=== PATIENT | male | born 2000 | race Caucasian/White ===

== ENCOUNTER 2024-12-19 10:05 | Day surgery (SDC) | payer OTHER, SELFPAY ==
[2024-12-19] VITALS (12 sets, daily range): BP systolic 124–152; BP diastolic 77–95; PULSE 81–115; RESP 12–29; TEMP 36.1–37.1; O2SAT 91–99; BMI 31.8
--- OUTSIDE RECORDS SUMMARY | 2024-12-19 10:09 | XMS_ITS | Encounter Summary ---
Author Organization [facility] Address [address] [facility] [place] [address] Care Team Providers Care Carton Machine Operator Name Role Phone Unavailable Primary Care Provider Unavailabl e Encounter Details Date Type Department Care Team (Latest Contact Info) Description 04/03/2004 Outpatient Historical [facility] Ophthalmology 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
--- OUTSIDE RECORDS SUMMARY | 2024-12-19 10:09 | XMS_ITS | Clinical Summary ---
Author Organization [facility] Address [address] [place] [address] Care Team Providers Care Travertine Installer Name Role Phone Unavailable Primary Care Provider Unavailabl e Immunizations Immunization Administration Dates Next Due (M-M-R II/PRIORIX)(12 MO UP) MEASLES, MUMPS AND RUBELLA VIRUS VACCINE, 0.5 ML IM/SUBCUT 09/05/2000 (VARIVAX)(12 MOS UP)VARICELL A VIRUS VACCINE (PF) 0.5 ML, SUB CUT 12/30/2002 Dt Dtp Dtap Vaccine 09/05/2000, 0,1999,1999 HIB, Unspecified Formulation 09/05/2000, 03/03/2000,1999,1999 Hepatitis B Vaccine 03/03/2000,1999,1999 IPV/OPV 09/05/2000,1999,1999 Social History Tobacco Use Types Packs/Day Years Used Date Smoking Tobacco: Never Assessed Sex and Gender Information Value Date Recorded Sex Assigned at Not on file 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
--- OUTSIDE RECORDS SUMMARY | 2024-12-19 10:09 | XMS_ITS | Encounter Summary ---
Author Organization [facility] Address [address] [facility] [place] [address] Care Team Providers Care Water Filterer Name Role Phone Unavailable Primary Care Provider Unavailabl e Encounter Details Date Type Department Care Team (Latest Contact Info) Description 07/03/2004 Outpatient Historical [facility] Ophthalmology 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
--- OUTSIDE RECORDS SUMMARY | 2024-12-19 10:09 | XMS_ITS | Encounter Summary ---
Author Organization [facility] Address [address] [place] [address] Care Team Providers Care Regulatory Affairs Coordinator Name Role Phone Unavailable Primary Care Provider Unavailabl e Encounter Details Date Type Department Care Team (Latest Contact Info) Description 09/10/2005 Outpatient Historical [facility] Op[facility]mology 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
--- NOTE | 2024-12-19 10:20 | CTR_ITS ---
PROCEDURE INFORMATION: Exam: CT Abdomen And Pelvis With Contrast Exam date and time: 12/19/2024 10:30 AM Age: 24 years old Clinical indication: Abdominal pain; Periumbilical; Additional info: Abd pain TECHNIQUE: Imaging protocol: Computed tomography of the abdomen and pelvis with contrast. Radiation optimization: All CT scans at this facility use at least one of these dose optimization techniques: automated exposure control; mA and/or kV adjustment per patient size (includes targeted exams where dose is matched to clinical indication); or iterative reconstruction. Contrast material: OMNIPAQUE 350; Contrast volume: 100 ml; Contrast route: INTRAVENOUS (IV); COMPARISON: No relevant prior studies available. RADIATION DOSE METRICS: Total DLP (mGy-cm): 839.83 FINDINGS: Liver: Normal. No mass. Gallbladder and biliary ducts: Normal. No calcified stones. No ductal dilation. Pancreas: Normal. No ductal dilation. Spleen: Normal. No splenomegaly. Adrenal glands: Normal. No mass. Kidneys and ureters: Normal. No hydronephrosis. Stomach and bowel: Unremarkable. No obstruction. No mucosal thickening. Appendix: Appendiceal diameter measures 9 mm with subtle periappendiceal fat stranding. Findings are consistent with acute appendicitis. No fluid collections are seen. Intraperitoneal space: Unremarkable. No free air. No significant fluid collection. Vasculature: Unremarkable. No abdominal aortic aneurysm. Lymph nodes: Unremarkable. No enlarged lymph nodes. Urinary bladder: Unremarkable as visualized. Reproductive: Unremarkable as visualized. Bones/joints: Unremarkable. No acute fracture. Soft tissues: Unremarkable. CT/CT abdomen pelvis w con* [id number] IMPRESSION: Findings consistent with acute appendicitis.
--- NOTE | 2024-12-19 10:21 | W.ED.ABDPA2 ---
HPI - Abdominal Pain General: Chief Complaint: Abdominal Pain Stated Complaint: lower abd pain, n/v, chills Time Seen by Provider: 12/19/24 10:07 Source: patient Mode of arrival: ambulatory Limitations: no limitations History of Present Illness: 24-year-old male states that he has been having nausea vomiting with abdominal pain since the middle of the night. States he has diffuse pain is sharp in nature rates it a 7 out of 10. He denies any fevers denies any worsening improving factors no history any abdominal surgeries in the past. Associated Symptoms: Reports nausea and vomiting; Denies chills, diarrhea and fever(s) Related Data Home Medications ?Medication ?Instructions ?Recorded ?Confirmed finasteride 5 mg tablet 5 mg PO DAILY 12/19/24 12/19/24 Allergies Allergy/AdvReac Type Severity Reaction Status Date / Time No Known Allergies Allergy Verified 12/19/24 10:53 Review of Systems Const: Denies: fever(s), chills, body aches or change in appetite ENMT: Denies: throat pain or dental pain Card: Denies: chest pain Resp: Denies: dyspnea GI: Reports: abdominal pain, nausea and vomiting; Denies: diarrhea Musc: Denies: neck pain or back pain Skin/Breast: Denies: rash Neuro: Denies: headache(s) Physical Exam Const: COMMON NORMALS: no acute distress, patient oriented x3 and healthy appearing HENMT: COMMON NORMALS: normocephalic and atraumatic HEAD & SCALP: normocephalic and atraumatic Eye: COMMON NORMALS: conjunctivae normal CONJUNCTIVA: Yes conjunctivae normal Neck/C-Spine: COMMON NORMALS: full ROM and supple Chest: COMMONS NORMALS: normal inspection of the chest Resp: COMMON NORMALS: normal respiratory effort Cardio: COMMON NORMALS: regular rate, regular rhythm and No murmurs present (Cardio) RATE: regular rate RHYTHM: regular rhythm GI: COMMON NORMALS: Normal to inspection, nondistended, normoactive bowel sounds present, Soft to palpation and no masses PALPATION: Yes Soft to palpation OTHER: Diffuse tenderness Extremity: COMMON NORMALS: normal to inspection and full ROM Neuro: COMMON NORMALS: patient oriented x3, moves all extremities and no focal motor deficits Psych: COMMON NORMALS: mental status grossly normal, Normal thought process present and cooperative THOUGHT PROCESS: Normal thought process present Skin: COMMON NORMALS: no rashes or lesions noted and no wounds GENERAL SKIN EXAM: no rashes or lesions noted Course Vital Signs: Vital signs: Vital Signs Temperature 98.1 F 12/19/24 10:17 Pulse Rate 81 12/19/24 10:17 Respiratory Rate 17 12/19/24 10:53 Blood Pressure 152/81 12/19/24 10:49 Pulse Oximetry 98 12/19/24 10:53 Oxygen Delivery Me thod Room Air 12/19/24 10:17 MDM - Abdominal Pain Medical Decision Making Patient presents here with abdominal pain along with nausea vomiting. Did review CT scan that shows appendicitis he has an elevated white count as well. No signs of perforation blood pressures here been normal I spoke to surgeon Dr. Brown who is going to come see patient and likely take to the OR from the ER. I have informed patient and his mother of the CT findings and the plan of surgery they understand agree to plan Medical Records I reviewed the patient's medical records. Lab Data I reviewed the patient's lab results. 12/19/24 10:28 12/19/24 10:28 Labs/Radiology: Radiology Impressions Abdomen/Pelvis CT 12/19/24 10:20 IMPRESSION: Findings consistent with acute appendicitis. ADDENDUM: 12/19/24 1112 COMMENT: THIS REPORT CONTAINS FINDINGS THAT MAY BE CRITICAL TO PATIENT CARE. The exam findings were verbally communicated by me to DR. LIDIA CONCEPCION via telephone conference at 11:11 AM CDT on 12/19/2024. The findings were acknowledged and understood. Laboratory Results WBC 15.11 10^3/uL (3.29-11.43) H 12/19/24 10:28 RBC 5.21 10^6/uL (3.85-5.65) 12/19/24 10:28 Hgb 15.10 g/dL (11.27-16.99) 12/19/24 10:28 Hct 43.6 % (37-53) 12/19/24 10:28 MCV 83.7 fl (82-101) 12/19/24 10:28 MCH 29.0 pg (27-33) 12/19/24 10:28 MCHC 34.6 g/dL (30-55) 12/19/24 10:28 RDW 13.5 % (12.1-15.1) 12/19/24 10:28 Plt Count 236 10^3/cmm (157-399) 12/19/24 10:28 MPV 9.5 fL (7.4-10.4) 12/19/24 10:28 Neut % (Auto) 92.5 % 12/19/24 10:28 Lymph % (Auto) 3.2 % 12/19/24 10:28 Sandoval % (Auto) 3.6 % 12/19/24 10:28 Eos % (Auto) 0.0 % 12/19/24 10:28 Baso % (Auto) 0.1 % 12/19/24 10:28 Neut # (Auto) 13.98 10^3/uL (1.8-7.7) H 12/19/24 10:28 Lymph # (Auto) 0.5 10^3/uL (0.8-4.8) L 12/19/24 10:28 Sandoval # (Auto) 0.5 10^3/uL (0.2-0.9) 12/19/24 10:28 Eos # (Auto) 0.0 10^3/uL (0.0-0.8) 12/19/24 10:28 Baso # (Auto) 0.0 10^3/uL (0.0-0.1) 12/19/24 10:28 Nucleated RBC % (auto) 0 % 12/19/24 10:28 Nucleated RBCs # 0.0 /100WBC 12/19/24 10:28 Sodium 136 mmol/L (136-145) 12/19/24 10:28 Potassium 4.4 mmol/L (3.5-5.1) 12/19/24 10:28 Chloride 99 mmol/L (98-107) 12/19/24 10:28 Carbon Dioxide 25 mmol/L (22-29) 12/19/24 10:28 Anion Gap 16.4 (5-19) 12/19/24 10:28 BUN 13 mg/dL (6-20) 12/19/24 10:28 Creatinine 0.8 mg/dL (0.7-1.2) 12/19/24 10:28 GFR Calculation 117.8 mL/min (90-130) 12/19/24 10:28 Glucose 171 mg/dL (65-115) H 12/19/24 10:28 Calculated Osmolality 286 mOsm/kg (285-295) 12/19/24 10:28 Calcium 9.4 mg/dL (8.5-10.5) 12/19/24 10:28 Total Bilirubin 0.6 mg/dL (0.15-1.2) 12/19/24 10:28 AST 18 U/L (0-40) 12/19/24 10:28 ALT 21 U/L (0-41) 12/19/24 10:28 Alkaline Phosphatase 66 U/L (40-130) 12/19/24 10:28 Total Protein 7.7 g/dL (6.6-8.7) 12/19/24 10:28 Albumin 4.7 g/dL (3.5-5.2) 12/19/24 10: Globulin 3.0 g/dL (1.3-4.6) 12/19/24 10:28 Lipase 24 U/L (13-60) 12/19/24 10:28 Urine Color Yellow (Yellow) 12/19/24 10:41 Urine Appearance Cloudy (CLEAR) A 12/19/24 10:41 Urine pH 7.5 (5-7) 12/19/24 10:41 Ur Specific [place] 1.041 (1.005-1.030) H 12/19/24 10:41 Urine Protein 1+ (Negative) A 12/19/24 10:41 Urine Glucose (UA) 2+ (Normal) H 12/19/24 10:41 Urine Ketones 2+ (Negative) H 12/19/24 10:41 Urine Blood Negative (Negative) 12/19/24 10:41 Urine Nitrate Negative (Negative) 12/19/24 10:41 Urine Bilirubin Negative (Negative) 12/19/24 10:41 Urine Urobilinogen 1.0 mg/dL (Negative) 12/19/24 10:41 Ur Leukocyte Esterase Negative (Negative) 12/19/24 10:41 Urine RBC 0-2 /hpf (0-2) 12/19/24 10:41 Urine WBC 0-5 /hpf (0-5) 12/19/24 10:41 Ur Squamous Epith Cells 0-5 /hpf (0-5) 12/19/24 10:41 Amorphous Sediment Not Reportable 12/19/24 10:41 Urine Bacteria None seen /hpf (NONE) 12/19/24 10:41 Hyaline Casts 0-4 /lpf H 12/19/24 10:41 All radiology interpretation(s) finalized by discharge Discharge Plan Discharge Patient Disposition: Admitted As Inpatient Clinical Impression: Acute appendicitis Condition: Stable Coding Level of Care Code ED Rope Twisting Machine Operator for Fahad Rodriguez
[2024-12-19] MEDS: iohexol 350 mg/mL 500 mL Btl (per mL) IV (10:35)
[2024-12-19 10:39] LABS: Hematocrit 43.6 % (37-53); Hemoglobin 15.10 g/dL (11.27-16.99); Mean Corpuscular HGB Conc 34.6 g/dL (30-55); Mean Corpuscular Hemoglobin 29.0 pg (27-33); Mean Corpuscular Volume 83.7 fl (82-101); Nucleated Red Blood Cells % 0 %; Platelet Count 236 10^3/cmm (157-399); Red Blood Count 5.21 10^6/uL (3.85-5.65); White Blood Count 15.11 10^3/uL (3.29-11.43)
[2024-12-19 10:53] LABS: Alanine Aminotransferase 21 U/L (0-41); Albumin Level 4.7 g/dL (3.5-5.2); Alkaline Phosphatase 66 U/L (40-130); Anion Gap 16.4 (5-19); Aspartate Amino Transferase 18 U/L (0-40); Blood Urea Nitrogen 13 mg/dL (6-20); Calcium 9.4 mg/dL (8.5-10.5); Carbon Dioxide 25 mmol/L (22-29); Chloride 99 mmol/L (98-107); Creatinine Clr Calc Pharmacy 178.0855; Globulin 3.0 g/dL (1.3-4.6); Glucose 171 mg/dL (65-115); Lipase 24 U/L (13-60); Osmolality Calculated 286 mOsm/kg (285-295); Potassium 4.4 mmol/L (3.5-5.1); Sodium 136 mmol/L (136-145); Total Protein 7.7 g/dL (6.6-8.7)
[2024-12-19] MEDS: ondansetron 2 mg/ML SDV 2 mL 4 MG IVP (10:53)
[2024-12-19] MEDS: morphine 4 mg/mL SDV 1 mL IVP (10:53)
[2024-12-19 10:54] LABS: Glucose Urine UA 2+ (Normal); Nitrate Urine Negative (Negative)
[2024-12-19 10:56] LABS: Add Urine Microscopic? YES
[2024-12-19 11:02] LABS: Specific Gravity, Urine 1.041 (1.005-1.030)
[2024-12-19] MEDS: piperacillin-tazobactam 3.375 GM in sodium chloride 0.9% (plus) 50 ML IV (11:17)
--- NOTE | 2024-12-19 11:37 | PM.HP ---
Providers/Chief Complaint Chief Complaint: lower abd pain, n/v, chills History of Present Illness Darcy Irvin is a 24 year old male who presents to the hospital with abdominal pain over the last 24 hours. Pain is diffuse but has been localizing to the right lower quadrant. Nessan was 15 [address] scan shows acute appendicitis I was consulted for this finding. Review of Systems General: Reports: 10 or more systems reviewed and unremarkable except in HPI and below Medications/Allergies Home Medications ?Medication ?Instructions ?Recorded ?Confirmed ?Last Taken ?Type finasteride 5 mg tablet 5 mg PO DAILY 12/19/24 12/19/24 12/17/24 History Allergies Allergy/AdvReac Type Severity Reaction Status Date / Time No Known Allergies Allergy Verified 12/19/24 10:53 Vitals/I&O/Wt Last Vital Signs Temp 98.1 F 12/19/24 10:17 Pulse 81 12/19/24 10:17 Resp 17 12/19/24 10:53 BP 152/81 12/19/24 10:49 Pulse Ox 98 12/19/24 10:53 O2 Del Method Room Air 12/19/24 10:17 Weight last 48 hrs Weight 235 lb Physical Exam Narrative: The abdominal exam is benign abdomen is soft, nondistended, there is tenderness in the right lower quadrant, no peritonitis Data 12/19/24 10:28 12/19/24 10:28 A&P Assessment and plan 1. Acute appendicitis: Plan: This is a 24-year-old male who presents with acute appendicitis verified by imaging. After discussion of all risk benefits as documented we have decided to proceed with laparoscopic possible open appendectomy. I discussed with the patient the risks of injury to the adjacent structures including the colon the small bowel and ureter, risk of hernia, resolve abscess, risks of bleeding, risk of needing additional interventions, risk of conversion to open procedure. Patient shows understanding agrees with the plan. She has been n.p.o. since 10 PM yesterday will proceed to the OR HUSEYIN. Will start the patient on Zosyn. PDMP PDMP Reviewed: Not Reviewed Attestations Medical Necessity Statement*: Possible discharge after surgery Coding Level of Care Code Acute Code for [facility] Diagnoses Acute appendicitis K35.80
--- NOTE | 2024-12-19 12:05 | ANES.PREANE2 ---
Pre-Anesthetic Assessment Height/Weight: Height 1.83 m Weight 106.594 kg Temp Pulse Resp BP Pulse Ox O2 Del Method 97.0 F L 83 20 H 146/92 99 Room Air 12/19/24 11:57 12/19/24 11:57 12/19/24 11:57 12/19/24 11:57 12/19/24 11:57 12/19/24 11:57 Preop Diagnosis: Appendicitis Operation Date: 12/19/24 12:30 Proposed Procedures p Laparoscopic Appendectomy(Not Applicable) - Jamarcus Lynn MD Was Beta Lloyd taken within 24 hours: N/A Was Clonidine taken within 24 hours: N/A Last intake: > 8 hrs Social No alcohol and No tobacco Exam alert, oriented x 3, clear to auscultation bilaterally and regular rate & rhythm Airway Mallampati: Class II Dentition: full Anesthetic Plan ASA status: 1E Anesthesia: General Other: RSI for vomiting stomach bile several hours ago Risk of > 500 ml blood loss (7ml/kg in children): No Medications/Allergies Home Medications ?Medication ?Instructions ?Recorded ?Confirmed ?Last Taken ?Type finasteride 5 mg tablet 5 mg PO DAILY 12/19/24 12/19/24 12/17/24 History Allergies Allergy/AdvReac Type Severity Reaction Status Date / Time No Known Allergies Allergy Verified 12/19/24 10:53 Data Anesthesia 12/19/24 10:28 12/19/24 10:28 Short CBC 12/19/24 Range/Units 10:28 WBC 15.11 H (3.29-11.43) 10^3/uL Hgb 15.10 (11.27-16.99) g/dL Hct 43.6 (37-53) % MCV 83.7 (82-101) fl Plt Count 236 (157-399) 10^3/cmm Neut % (Auto) 92.5 % Neut # (Auto) 13.98 H (1.8-7.7) 10^3/uL BMP 12/19/24 10:28 Sodium 136 Potassium 4.4 Chloride 99 Carbon Dioxide 25 BUN 13 Creatinine 0.8 Glucose 171 H Calcium 9.4 Liver Function 12/19/24 Range/Units 10:28 Total Bilirubin 0.6 (0.15-1.2) mg/dL AST 18 (0-40) U/L ALT 21 (0-41) U/L Alkaline Phosphatase 66 (40-130) U/L Albumin 4.7 (3.5-5.2) g/dL Urine 12/19/24 Range/Units 10:41 Urine Color Yellow (Yellow) Urine Appearance Cloudy A (CLEAR) Urine pH 7.5 (5-7) Ur Specific [place] 1.041 H (1.005-1.030) Urine Protein 1+ A (Negative) Urine Glucose (UA) 2+ H (Normal) Urine Ketones 2+ H (Negative) Urine Nitrate Negative (Negative) Urine Bilirubin Negative (Negative) Ur Leukocyte Esterase Negative (Negative) Urine RBC 0-2 (0-2) /hpf Urine WBC 0-5 (0-5) /hpf
[2024-12-19] MEDS: BUPivacaine 0.25% INJ 10 mL INJECTION (12:35)
[2024-12-19] MEDS: lidocaine-epi 1% 20 mL INJ 10 ML INJECTION (12:35)
--- NOTE | 2024-12-19 13:03 | P.OP_ITS ---
Operative Report Date of procedure: December 19, 2024 Pre-op diagnosis: Acute appendicitis Post-op diagnosis: Same Post-op findings: There is a inflame appendix, no perforation, healthy base Procedure done: Laparoscopic appendectomy Specimens removed/disposition: Appendix Surgeon: Jamarcus Lynn MD Radius Corner Machine Operator: SOPHIE OR Staff Estimated blood loss: 5 Complications: none Brief History: 24-year-old male who presents to the ER with abdominal pain, he had a white count of [address] scan showed acute appendicitis. After discussion we will reason benefits we proceed to the OR for laparoscopic possible open appendectomy. Procedure: Patient was brought into the OR, placed in the supine position. General anesthesia was given. The abdomen was prepped and draped in the usual sterile fashion. A timeout was conducted. The abdomen was accessed via a 5 mm incision in the left upper quadrant using Optiview technique. Initial pneumoperitoneum was obtained no evidence of visceral injury during entry. Additional 5 mm trocar was placed in the supra pubic location and a 12 mm trocar in the infraumbilical location both under direct visualization. The patient was placed in steep Trendelenburg with left side down. The appendix was noted to be inflamed and fixed to the lateral pelvic sidewall. With careful dissection with Ligasure I was able to liberate the tip of the appendix from the sidewall. I then took down the mesoappendix from the tip to the base using Ligasure. The base of the appendix appeared healthy. I proceeded to transect the appendix at the base using a 45 mm blue load Endo DL stapler, the staple line appeared healthy and hemostatic. The appendix was retrieved in an Endo Catch bag using the infraumbilical trocar site. The infraumbilical trocar was removed and the trocar site was closed with a #0 Vicryl using a Christopher-Papi suture passer under direct visualization. The suprapubic trocar was removed under direct visualization the left upper quadrant trocar was used to evacuate the pneumoperitoneum and subsequently removed. Hemostasis was achieved in all wounds. Local anesthesia was infiltrated. The wounds were closed in layers using #3-0 Vicryl for subcutaneous tissue and #4-0 Monocryl for the skin. Dermabond was applied. At the end of the procedure all counts were correct the patient tolerated well the procedure was transferred to the PACU in stable condition
[2024-12-19] MEDS: fentaNYL 50 mcg/mL INJ 2mL IVP (13:38)
--- NOTE | 2024-12-19 14:06 | SUR.PHASEII ---
1405 - discharge instructions given to patient, spouse and mom - all verbalizes understanding
--- NOTE | 2024-12-19 14:20 | ANE.PACU2 ---
Inpatient post-anesthesia follow up: Airway intact: Yes Vital signs: Temperature 98.8 F Pulse Rate 90 Respiratory Rate 20 Blood Pressure 132/79 Pulse Oximetry 91 Oxygen Delivery Me thod Room Air Oxygen Flow Rate Fraction of Inspir ed Oxygen Hydration adequate: Yes Nausea and vomiting: No Pain level: 1 Mental status: Baseline
== END 2024-12-19 14:23 | disposition home or self-care (01) ==
LOC: ER 11:40 → OR 11:50
PROVIDERS: Emergency Provider Emergency Medicine; Visit Provider Surgery
PROC: 0DTJ4ZZ Resection of Appendix, Percutaneous Endoscopic Approach (ICD-10-PCS; CPT 44970; principal; 2024-12-19 12:30)
DX: K35.80 Unspecified acute appendicitis (principal)
CPT/HCPCS: 44970; 36415; 74177; 80053; 81001; 83690; 85025; 88304; A4216; J0330; J1100; J1885; J2250; J2270; J2405; J2543; J2704; J3010; J3490; J7030; J9999

== ENCOUNTER → 2025-01-11 08:18 | Outpatient (BNVA) | payer OTHER, SELFPAY | PROVIDERS: Visit Provider Surgery | DX: R03.0 Elevated blood-pressure reading, without diagnosis of hypertension (principal); Z98.890 Other specified postprocedural states | CPT/HCPCS: 99024 ==